=== PATIENT | male | born 1985 | race Caucasian/White ===

== ENCOUNTER 2024-02-12 19:27 | Emergency (ER) | payer OTHER, SELFPAY ==
[2024-02-12 19:30] VITALS: BP 164/102
[2024-02-12 19:45] LABS: % Basophils 0.6 % (0-2); % Eosinophils 1.7 % (0-6); % Immature Granulocytes 0.5 % (0-0.5); % Lymphocytes 32.1 % (20.5-51.1); % Monocytes 5.3 % (1.7-9.3); % Neutrophils 59.8 % (42.2-75.2); Absolute Basophils 0.1 10^3/uL (0-0.2); Absolute Eosinophils 0.1 10^3/uL (0-0.7); Absolute Lymphocytes 2.7 10^3/uL (1.2-3.4); Absolute Monocytes 0.5 10^3/uL (0.1-0.6); Absolute Neutrophils 5.1 10^3/uL (1.4-6.5); Hematocrit 44.3 % (39.0-52.0); Hemoglobin 15.7 g/dL (13.0-18.0); Mean Corp Hgb Conc. 35.4 g/dL (33.0-37.0); Mean Corpuscular Hgb 28.6 pg (27.0-31.0); Mean Corpuscular Volume 80.8 fL (80.0-94.0); Mean Platelet Volume 11.3 fL (7.4-10.4); Nucleated Red Blood Cells % 0 % (-); Platelet Count 205 10^3/uL (130-400); Red Blood Cell Count 5.48 10^6/uL (4.70-6.10); Red Cell Dist. Width 13.1 % (11.5-14.5); White Blood Cell Count 8.5 10^3/uL (4.8-10.8)
[2024-02-12 19:50] VITALS: BP 139/92
[2024-02-12 19:58] LABS: INR 1.07; PT 13.7 Sec (11.4-14.6)
[2024-02-12 19:59] LABS: ALT (SGPT) 27 U/L (0-50); AST (SGOT) 24 U/L (17-59); Albumin 5.1 g/dl (3.5-5.0); Alkaline Phosphatase 65 U/L (38-126); Blood Urea Nitrogen 16 mg/dl (9-20); Carbon Dioxide 21 mmol/L (22-30); Chloride 102 mmol/L (98-107); Glucose 104 mg/dl (70-99); Potassium 3.9 mmol/L (3.5-5.1); Sodium 136 mmol/L (135-145); Total Bilirubin 0.8 mg/dl (0.2-1.3); Total Protein 7.7 g/dl (6.3-8.2); eGFR > 60.00
[2024-02-12 20:00] VITALS: BP 151/99
--- NOTE | 2024-02-12 20:10 | ED.GENMED ---
History of Present Illness
<Britton Bautista MD - Last Filed: 02/12/24 20:14>
General
Chief Complaint: Chest Pain
Time Seen by Provider: 02/12/24 19:57
<Nicolas Lu PA-C - Last Filed: 02/12/24 22:57>
General
Source: patient
History of Present Illness
History of Present Illness:
38-year-old male with past medical history of ADHD presenting to the emergency department via EMS for evaluation after patient started to experience some upper back discomfort/dizziness/diaphoresis around 6 PM this evening while driving to a
restaurant for dinner. Patient reports that he was on his way from work but states he overall had a pretty good day at work without any significant stressors. Patient states that during this time he also started to experience some left upper
extremity paresthesias and that both of his legs seem to be feeling abnormal as well. Patient states he is unable to describe the sensation that he was feeling in his upper neck/back area that caused him this discomfort. He notes that symptoms
seem to be a little bit better since arriving to the emergency department but states still feels 'weird'. Patient notes that his father has a history of cardiac disease and previous SC but notes no known history of aneurysm or aortic complications.
Denies any fevers or infectious symptoms although does note he had COVID about 1 month ago.
Past History
<Britton Bautista MD - Last Filed: 02/12/24 20:14>
Past History
ED Past Medical History: None; Negative Asthma, HTN, Hypercholesterolemia or NIDDM
ED Past Surgical History: Other (Tear duct surgery)
Social History
Tobacco: Former smoker
Alcohol: Occasional
Personal: Single
Living: with family
Employment: Employed (film history)
Family History
Family History: Negative Early CAD
<Nicolas Lu PA-C - Last Filed: 02/12/24 22:57>
Social History
Drug: None
Review of Systems
<Nicolas Lu PA-C - Last Filed: 02/12/24 22:57>
Review of Systems
All Other Systems: ROS reviewed and negative except as documented in HPI and ROS
Phy Exam
<Nicolas Lu PA-C - Last Filed: 02/12/24 22:57>
Physical Exam
Physical Exam:
GENERAL: Alert , in no apparent distress, overweight
EYE: clear conjunctiva b/l
HEAD: NCAT
ENT: o/p clr, mmm.
CARDIAC: Regular rate and rhythm .
LUNGS: Clear breath sounds bilaterally, no acute respiratory distress, no wheezes/rales/rhonchi
ABDOMEN: Soft, without focal tenderness, no r/g, no cvat, negative Sanderson sign, no tenderness at McBurney's point
NEUROLOGICAL: Alert and oriented
SKIN: Warm and dry, skin intact.
MUSCULOSKELETAL: No edema, well perfused.
PSYCH: Normal and appropriate interaction.
Scores
<Nicolas Lu PA-C - Last Filed: 02/12/24 22:57>
Heart Failure Risk
Heart Failure Risk Score: Not Applicable
Heart Score for Chest Pain Patients
STEMI patient?: Not applicable
Withdrawal Assessment of Alcohol
Withdrawal Assessment Completed?: Not applicable
Course
<Britton Bautista MD - Last Filed: 02/12/24 20:14>
Orders/Labs/Results
Orders:
Orders
02/12/24 19:32
ECG [Electrocardiogram (*1)] Urgent
Reason for Study: Chest Pain
EKG- Treatment ONCE
02/12/24 19:40
Complete Blood Count/With Diff Urgent
Comprehensive Metabolic Panel Urgent
Prothrombin Time Urgent
Troponin I Urgent
02/12/24 20:03
CT Chest Angio W/wo Iv Contras Urgent
Reason For Exam: upper back/chest pain, headache
02/12/24 22:12
Troponin I Urgent
Abnormal Lab Results
02/12/24
19:40
MPV 11.3 H fL
(7.4-10.4)
Carbon Dioxide 21 L mmol/L
(22-30)
Glucose 104 H mg/dl
(70-99)
Albumin 5.1 H g/dl
(3.5-5.0)
02/12/24 19:40
02/12/24 19:40
Vital Signs
Initial and Last Documented VS:
Initial Vital Signs
Temp Pulse Resp BP Pulse Ox
98.1 F 100 18 164/102 100
02/12/24 19:30 02/12/24 19:30 02/12/24 19:30 02/12/24 19:30 02/12/24 19:30
Last Documented Vital Signs
Temp Pulse Resp BP Pulse Ox
98.1 F 86 23 143/89 95
02/12/24 19:30 02/12/24 22:45 02/12/24 22:45 02/12/24 22:00 02/12/24 22:45
<Nicolas Lu PA-C - Last Filed: 02/12/24 22:57>
Orders/Labs/Results
Orders:
Orders
02/12/24 19:32
ECG [Electrocardiogram (*1)] Urgent
Reason for Study: Chest Pain
EKG- Treatment ONCE
02/12/24 19:40
Complete Blood Count/With Diff Urgent
Comprehensive Metabolic Panel Urgent
Prothrombin Time Urgent
Troponin I Urgent
02/12/24 20:03
CT Chest Angio W/wo Iv Contras Urgent
Reason For Exam: upper back/chest pain, headache
02/12/24 22:12
Troponin I Urgent
Abnormal Lab Results
02/12/24
19:40
MPV 11.3 H fL
(7.4-10.4)
Carbon Dioxide 21 L mmol/L
(22-30)
Glucose 104 H mg/dl
(70-99)
Albumin 5.1 H g/dl
(3.5-5.0)
02/12/24 19:40
02/12/24 19:40
Vital Signs
Initial and Last Documented VS:
Initial Vital Signs
Temp Pulse Resp BP Pulse Ox
98.1 F 100 18 164/102 100
02/12/24 19:30 02/12/24 19:30 02/12/24 19:30 02/12/24 19:30 02/12/24 19:30
Last Documented Vital Signs
Temp Pulse Resp BP Pulse Ox
98.1 F 86 23 143/89 95
02/12/24 19:30 02/12/24 22:45 02/12/24 22:45 02/12/24 22:00 02/12/24 22:45
Flange Turner consulted with Physician
Flange Turner consulted with physician?: Yes
Name of Physician Consulted: Lily
<Nicolas Lu PA-C - Last Filed: 02/12/24 22:57>
MDM/Problems Addressed
Differential Diagnosis Includes:
Aortic dissection/aneurysm, atypical ACS presentation, post COVID syndrome, anxiety
MDM/Problems Addressed:
38-year-old male presenting to the emergency department for evaluation after he started to experience lightheadedness/dizziness/diaphoresis, upper back/neck discomfort, left upper extremity and bilateral lower extremity paresthesia and generally
feeling unwell. Given patient's presentation dissection is considered on his differential and a stat CT angio of the chest and pelvis was ordered. Patient is currently mildly hypertensive at 150/100. Will continue to monitor this. Labs and EKG
initiated. Disposition pending
<Nicolas Lu PA-C - Last Filed: 02/12/24 22:57>
*Radiology
Radiology exam reviewed: radiology read reviewed
*Critical Care Note
Total Time (30-74mins, 75-104mins- exclusive of procedures): Not Applicable
<Nicolas Lu PA-C - Last Filed: 02/12/24 22:57>
Patient Management
Escalation/DeEscalation of care consider admission/obs:
Patients CTA negative for acute pathologies. Repeat troponin negative. BP remains slightly elevated albeit improved. I adsised patient follow up with PCP in the coming days to have BP rechecked. Return precautions discussed and agreed upon. Stable
for discharge home.
ED Attending Note
<Britton Bautista MD - Last Filed: 02/12/24 20:14>
ED Attending Note
Patient seen and examined by attending physician: Yes
ED Attending Note:
I have seen and evaluated the patient with a [id number] encounter. I have spoken to the advance practicer provider and involved in the medical history, the physical exam, medical decision making.
Evaluation and management service: agree unless noted differently below.
Results interpretation: agree unless noted differently below.
Focused HPI: 38-year-old male with a past medical history of ADHD on Vyvanse who presents to the emergency room for evaluation of back pain and neck pain. Patient reports that he was in his normal state of health around 6 PM. 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
work (works in retail) and was driving to a restaurant to eat. He says that when he arrived at the restaurant and got out of the car he felt a strange feeling in both of his legs and felt unsteady on his feet. He says that he then began to feel
dizzy, anxious and sweaty. He says that he got back from the car to leave and began to have a pressure sensation in his back radiating into the neck. He says he started to have some 'pangs' of pain in the chest, abdomen and in his legs. He came
to the emergency room to be assessed. He says symptoms have generally improved but not resolved since arrival here. He denies having had similar symptoms in the past.
Physical exam: Awake, alert, nontoxic-appearing. Hypertensive to 164/102, tachycardic to the low 100s. Rest of vitals normal. He has no cardiac rubs gallops or murmurs on auscultation. His lungs are clear to auscultation bilaterally. His
abdomen is soft and nontender with no palpable masses. He has strong symmetric and palpable radial, femoral, DP pulses bilaterally. His distal extremities are warm and well-perfused. On neurologic assessment his pupils are equal round and
reactive to light bilaterally, no gross cranial nerve deficits, moving all extremities equally with symmetric strength and no sensory deficit
Medical Decision Making: This 38-year-old male presents for evaluation of abrupt onset of constellation of symptoms as described above primarily complaining of back and neck pain here. Hypertensive and tachycardic with exam as above. Will plan to
send for stat CTA to rule out aortic dissection given abrupt onset of symptoms and associated marked hypertension. Will send labs including CBC and CMP, troponin. EKG reviewed shows no ischemia. Will monitor very closely reassess after the above.
-
Portions of this chart may have been created with voice recognition software.� Occasional wrong word or��sound alike� substitutions may have occurred due to the inherent limitations of voice recognition software.
Discharge Plan
Departure
Patient Disposition: Home (Routine Discharge)
Date of Disposition: 02/12/24
Time of Disposition: 22:43
Patient with high blood pressure during this ER visit?: Yes
Discharge Problem:
Chest pain
Instructions: Chest Pain That Is Not Caused by the Heart (DC)
Prescriptions:
No Action
pantoprazole 40 MG tablet,delayed release (DR/EC)
40 mg PO DAILY Qty: 10 0RF
Referrals:
UNKNOWN - PT DOES,NOT KNOW [Unknown Provider] -
Interventions
Interventions:
*Risk Screen - Suicide Last Done: 02/12/24 19:30
*General Assessment Last Done: 02/12/24 19:30
*Neglect/Abuse Screening Last Done: 02/12/24 19:30
*ED COVID-19 Vaccine History Last Done: 02/12/24 19:45
ED- Cardiac Assessment Last Done: 02/12/24 19:51
Discharge Date and Time
Print Language: GEORGIAN
[2024-02-12 20:11] LABS: Troponin I < 0.012 ng/ml
[2024-02-12 20:40] VITALS: BP 142/92
[2024-02-12 21:00] VITALS: BP 135/89
[2024-02-12 22:00] VITALS: BP 143/89
[2024-02-12 22:41] LABS: Troponin I < 0.012 ng/ml
== END 2024-02-12 23:02 | disposition home or self-care (01) ==
LOC: EMR 19:27
PROVIDERS: Emergency Medicine; Physician Assistant Medical; EMERGENCY PHYSICIAN Emergency Medicine; FAMILY PHYSICIAN Family Medicine
DX: R20.2 Paresthesia of skin (principal); R42 Dizziness and giddiness; R61 Generalized hyperhidrosis; R07.89 Other chest pain; M54.6 Pain in thoracic spine; M54.2 Cervicalgia; R26.81 Unsteadiness on feet; R00.0 Tachycardia, unspecified; F90.9 Attention-deficit hyperactivity disorder, unspecified type; Z86.16 Personal history of COVID-19; Z87.891 Personal history of nicotine dependence; Z82.49 Family history of ischemic heart disease and other diseases of the circulatory system
CPT/HCPCS: 99285; 71275; 80053; 84484; 85025; 85610; 93005; Q9967